=== PATIENT | male | born 1955 | race Two or more races ===

== ENCOUNTER 2021-10-15 13:38 | Inpatient (IN) | payer MEDICARE, OTHER ==
[~2021-10-15] VITALS: Ht 177.8 cm; Wt 92.3 kg
[2021-10-15 15:29] LABS: Calcium 9.1 mg/dL (8.5-10.1); Potassium 3.8 mmol/L (3.5-5.1)
[2021-10-15 15:33] LABS: INR 0.97 (0.9-1.15); Partial Thromboplastin Time 24.8 sec (23.6-33.0)
[2021-10-15 15:35] LABS: Albumin 3.8 g/dL (3.4-5.0); BUN/Creatinine Ratio 18.6; Bilirubin, Total 2.2 mg/dL (0.2-1.0); CRP High Sensitivity 0.05 mg/dL (< 0.3)
[2021-10-15] MEDS ORDERED: VANCOMYCIN 1GM/250ML 250 ML IV ONE (15:45)
[2021-10-15 16:30] LABS: Basophils # (auto) 0 10 ^3/uL (0-0.2); Basophils % (auto) 0.2 % (0.0-2.0); Eosinophils # (auto) 0 10 ^3/uL (0-0.8); Eosinophils % (auto) 0.6 % (0.0-7.0); Hematocrit 40.9 % (41.0-53.0); Hemoglobin 14.4 g/dL (13.5-17.5); Lymphocytes # (auto) 0.6 10 ^3/uL (0.4-5.4); Lymphocytes % (auto) 20.3 % (10.0-50.0); Mean Corpuscular Hemoglobin 36.8 pg (28.0-32.0); Mean Corpuscular Hgb Conc. 35.3 g/dL (32.0-36.0); Mean Corpuscular Volume 104.4 fL (80.0-100.0); Monocytes # (auto) 0.3 10 ^3/uL (0-1.3); Neutrophils # (auto) 1.9 10 ^3/uL (1.6-8.6); Neutrophils % (auto) 66.9 % (37.0-80.0); Nucleated Red Blood Cells % 0.9 %; Red Blood Cells 3.92 10^6/uL (4.5-5.90); Red Cell Distribution Width 13.7 % (11.8-14.3); White Blood Cell 2.9 10^3/uL (4.4-10.8)
[2021-10-15] MEDS ORDERED: ONDANSETRON HCL 4 MG/2 ML VIAL IV PRN (21:30)
[2021-10-15] MEDS ORDERED: ACETAMINOPHEN 325 MG TAB PO PRN (21:30)
[2021-10-15] MEDS ORDERED: HYDROcodone-ACET 5/325MG TAB PO PRN (21:30)
[2021-10-15] MEDS ORDERED: TEMAZEPAM 15 MG CAP PO PRN (21:30)
[2021-10-15] MEDS ORDERED: cefTRIAXone 1GM/50ML D5W 50 ML IV ONE (21:30)
[2021-10-15] MEDS: CLINDAMYCIN 600MG IV 50 ML IV SCH (21:53)
[2021-10-16 01:43] VITALS: BP 139/80
[2021-10-16] MEDS ORDERED: CLIN1GEL24 TOP (02:09)
[2021-10-16] MEDS ORDERED: CLIN300C8 PO (02:09)
[2021-10-16] MEDS ORDERED: SUMA100T15 PO (02:09)
[2021-10-16] MEDS ORDERED: MONT-8 PO (02:09)
[2021-10-16] MEDS ORDERED: FIN5T PO (02:09)
[2021-10-16] MEDS ORDERED: TAMS0.4C36 PO (02:09)
[2021-10-16] MEDS ORDERED: IBUP600T28 PO (02:09)
[2021-10-16] MEDS: CLINDAMYCIN 600MG IV 50 ML IV SCH ×2 (05:38→13:31)
[2021-10-16 05:41] VITALS: BP 138/66
[2021-10-16 06:29] LABS: BUN/Creatinine Ratio 21.7; Calcium 8.8 mg/dL (8.5-10.1); Potassium 3.9 mmol/L (3.5-5.1)
[2021-10-16 07:19] LABS: Basophils # (auto) 0 10 ^3/uL (0-0.2); Eosinophils # (auto) 0 10 ^3/uL (0-0.8); Lymphocytes # (auto) 0.9 10 ^3/uL (0.4-5.4); Neutrophils # (auto) 1.7 10 ^3/uL (1.6-8.6)
[2021-10-16 07:23] LABS: Basophils % (auto) 0.2 % (0.0-2.0); Eosinophils % (auto) 0.8 % (0.0-7.0); Hematocrit 37.1 % (41.0-53.0); Hemoglobin 13.2 g/dL (13.5-17.5); Lymphocytes % (auto) 28.7 % (10.0-50.0); Mean Corpuscular Hemoglobin 37.1 pg (28.0-32.0); Mean Corpuscular Hgb Conc. 35.6 g/dL (32.0-36.0); Monocytes # (auto) 0.5 10 ^3/uL (0-1.3); Monocytes % (auto) 15.1 % (0.0-12.0); Neutrophils % (auto) 55.2 % (37.0-80.0); Nucleated Red Blood Cells % 0.1 %; Red Blood Cells 3.57 10^6/uL (4.5-5.90); Red Cell Distribution Width 14.3 % (11.8-14.3)
[2021-10-16 09:00] VITALS: BP 121/64
[2021-10-16] MEDS ORDERED: cefTRIAXone 1GM/50ML D5W 50 ML IV SCH (09:00)
[2021-10-16] MEDS ORDERED: PANTOPRAZOLE 40 MG TAB PO SCH (10:00)
[2021-10-16 13:00] VITALS: BP 140/65
[2021-10-16 17:00] VITALS: BP 134/67
[2021-10-16] MEDS ORDERED: SUMAtriptan SUCCINATE 25 MG TAB PO ONE (17:00)
[2021-10-16] MEDS ORDERED: TAMSULOSIN HYDROCHLORIDE 0.4 MG CAP PO SCH (18:00)
[2021-10-16] MEDS: AMPICILLIN & SULBACTAM SODIUM 3 GM in SODIUM CHL 0.9% 100 ML IV SCH (19:43)
[2021-10-16 21:50] VITALS: BP 145/65
[2021-10-17] MEDS: AMPICILLIN & SULBACTAM SODIUM 3 GM in SODIUM CHL 0.9% 100 ML IV SCH ×3 (00:15→14:27)
[2021-10-17 05:00] VITALS: BP 124/64
[2021-10-17 08:00] VITALS: BP 124/64
[2021-10-17 08:09] LABS: Basophils # (auto) 0 10 ^3/uL (0-0.2); Eosinophils # (auto) 0 10 ^3/uL (0-0.8); Eosinophils % (auto) 0.7 % (0.0-7.0); Hemoglobin 14.1 g/dL (13.5-17.5); Lymphocytes # (auto) 0.6 10 ^3/uL (0.4-5.4); Monocytes # (auto) 0.4 10 ^3/uL (0-1.3); Neutrophils # (auto) 2.2 10 ^3/uL (1.6-8.6); Nucleated Red Blood Cells % 0.1 %; White Blood Cell 3.3 10^3/uL (4.4-10.8)
[2021-10-17 08:10] LABS: Basophils % (auto) 0.2 % (0.0-2.0); Hematocrit 39.4 % (41.0-53.0); Lymphocytes % (auto) 19.3 % (10.0-50.0); Mean Corpuscular Hemoglobin 37.2 pg (28.0-32.0); Mean Corpuscular Hgb Conc. 35.7 g/dL (32.0-36.0); Mean Corpuscular Volume 104.1 fL (80.0-100.0); Neutrophils % (auto) 66.8 % (37.0-80.0); Red Blood Cells 3.78 10^6/uL (4.5-5.90); Red Cell Distribution Width 14.1 % (11.8-14.3)
[2021-10-17 09:21] VITALS: BP 132/66
[2021-10-17] MEDS ORDERED: FINASTERIDE 5 MG TAB PO SCH (10:00)
[2021-10-17 12:59] VITALS: BP 133/66
[2021-10-17 16:36] VITALS: BP 136/65
== END 2021-10-17 17:44 | disposition home health service (06) | DRG 603 ==
LOC: ER 13:38 → OVERFLOW 21:17 → EAST 23:05
PROVIDERS: ADMIT Nurse Practitioner; ATTEND Internal Medicine
DX: L03.115 Cellulitis of right lower limb (principal); D61.818 Other pancytopenia; G43.909 Migraine, unspecified, not intractable, without status migrainosus; B95.2 Enterococcus as the cause of diseases classified elsewhere; Z20.822 Contact with and (suspected) exposure to COVID-19; S81.801A Unspecified open wound, right lower leg, initial encounter; X58.XXXA Exposure to other specified factors, initial encounter; Z80.0 Family history of malignant neoplasm of digestive organs; Z82.0 Family history of epilepsy and other diseases of the nervous system; Y93.89 Activity, other specified; Y92.89 Other specified places as the place of occurrence of the external cause; Y99.8 Other external cause status
CPT/HCPCS: 36415; 71045; 73610; 73630; 80048; 80053; 83605; 85025; 85610; 85652; 85730; 86141; 86850; 86900; 86901; 87040; 87205; 93005; 96365; 96367; G0378; J0696; J3490